=== PATIENT | female | born 1965 | race Caucasian/White ===

== ENCOUNTER 2018-03-26 23:44 | Emergency (ER) | payer OTHER ==
[2018-03-27 00:02] VITALS: BP 156/74; PULSE 65; O2SAT 94
--- NOTE | 2018-03-27 00:18 | ERPHSYRPT ---
- History of Present Illness Time Seen by Provider: 03/27/18 00:05 Source: patient Exam Limitations: no limitations Patient Subjective Stated Complaint: Pt arrives to ER with c/o scratch to varicose vein on right lower leg was sitting on couch at 2310 when she had an itch on her right lower leg that she scratched then felt something wet and was bleeding. Had applied pressure to wound and had not stopped bleeding so came into ER. Bleeding is now stopped and there is a very small scab forming around wound the size of a pen tip. Pt denies pain Triage Nursing Assessment: see above Physician History: 52-year-old white female arrives with complaint of bleeding from a varicose vein on her right leg since 23:10 this evening. According to patient she scratched it when sitting on the couch had bleeding from the area she states that she had blood squirting out of the scratch herself stated that he tried to put a dressing on it and wrap a tie tie around the area, however, the area continued to bleed. Currently the patient is not bleeding she does not appear to be in acute distress. Past medical history includes arthritis Past surgical history includes hernia repair orthopedic surgery vein stripping Method of Injury: other (scratched the area while sitting on the couch) Occurred: just prior to arrival Quality: constant Severity of Pain-Max: none Severity of Pain-Current: none Lower Extremities Pain: other: right (bleeding from small varicosity right anterior lower leg) Modifying Factors: Improves With: nothing Associated Symptoms: none Allergies/Adverse Reactions: No Known Drug Allergies Allergy (Verified 03/27/18 00:02) Home Medications: Gabapentin 300 mg PO BID 10/27/14 [History] Indomethacin 25 mg PO 03/27/18 [History] Tramadol HCl 50 mg [Ultram 50 mg] 50 mg PO 03/27/18 [History] Hx Tetanus, Diphtheria Vaccination/Date Given: Yes (UNKNOWN) Hx Influenza Vaccination/Date Given: No Hx Pneumococcal Vaccination/Date Given: No - Review of Systems Constitutional: No Fever, No Chills Eyes: No Symptoms Ears, Nose, & Throat: No Symptoms Respiratory: No Cough, No Dyspnea Cardiac: No Chest Pain, No Edema, No Syncope Abdominal/Gastrointestinal: No Abdominal Pain, No Nausea, No Vomiting, No Diarrhea Genitourinary Symptoms: No Dysuria Musculoskeletal: No Back Pain, No Neck Pain Skin: Other (bleeding from small varicosity right anterior lower leg) Neurological: No Dizziness, No Focal Weakness, No Sensory Changes Psychological: No Symptoms Endocrine: No Symptoms All Other Systems: Reviewed and Negative - Past Medical History Pertinent Past Medical History: Yes Musculoskeletal History: Arthritis - Past Surgical History Past Surgical History: Yes Gastrointestinal: Hernia Repair Musculoskeletal: Orthopedic Surgery Female Surgical History: Section Other Surgical History: SINUS SURGERY - Social History Smoking Status: Never smoker Exposure to second hand smoke: No Drug Use: none Patient Lives Alone: No - Female History Hx Now: No - Nursing Vital Signs Nursing Vital Signs: Initial Vital Signs Temperature 97.7 F 03/26/18 23:54 Pulse Rate 65 03/26/18 23:54 Respiratory Rate 20 03/26/18 23:54 Blood Pressure 156/74 03/26/18 23:54 O2 Sat by Pulse Oximetry 94 L 03/26/18 23:54 Pain Scale Pain Intensity 0 - Physical Exam General Appearance: alert Eyes, Ears, Nose, Throat Exam: moist mucous membranes Neck Exam: non-tender, supple Cardiovascular/Respiratory Exam: chest non-tender, normal breath sounds, regular rate/rhythm, no respiratory distress Gastrointestinal/Abdominal Exam: non-tender, guarding Back Exam: normal inspection, No vertebral tenderness Hips Exam: bilateral: non-tender, normal inspection, normal range of motion, no evidence of injury Legs Exam: right leg: other (Right lower leg with several small varicositis anteriorly, one of them with small punctate abrasion not bleeding at this time) , left leg: normal inspection, no evidence of injury, bilateral leg: non-tender , normal range of motion Knees Exam: bilateral knee: non-tender, normal inspection, normal range of motion, no evidence of injury Ankle Exam: bilateral ankle: non-tender, normal inspection, normal range of motion, no evidence of injury Foot Exam: bilateral foot: non-tender, normal inspection, normal range of motion , no evidence of injury Neuro/Tendon Exam: normal sensation, normal motor functions Mental Status Exam: alert, oriented x 3, cooperative Skin Exam: other ((right lower leg with small varicosity with punctate excoriation, not currently bleeding) SpO2 Interpretation: normal (94%) SpO2: 94 Oxygen Delivery: Room Air - Course Nursing assessment & vital signs reviewed: Yes Ordered Tests: Active Orders 24 hr Category Date Time Status Luke Bandage Application -[facility] STAT Care 03/27/18 00:12 Active Wound Care STAT Care 03/27/18 00:12 Active - Progress Progress: improved Progress Note: 03/27/18 00:19 This is a 52-year-old white female who arrives with complaint that she accidentally scratched varicosity on her right lower leg. This was apparently streaming blood at home. Her wrapped attired in a dressing around it apparently was bleeding in the waiting room but is no longer bleeding at this time. Will go ahead and have nurse clean the area apply a dressing and Luke wrap. Patient is to go home elevate her leg and apply cold packs to the area. - Departure Time of Disposition: 00:20 Departure Disposition: Home Clinical Impression: Bleeding from varicose vein Condition: Fair Critical Care Time: No Referrals: PAULY LEUNG [Primary Care Provider] - Additional Instructions: Return home. Elevate right leg tonight. Cold packs to area tonight. Follow-up with your family doctor or return if problems. Return for acute distress or for severe symptoms.
== END 2018-03-27 00:42 | disposition home or self-care (01) ==
LOC: ED 23:44
DX: I83.891 Varicose veins of right lower extremity with other complications (principal)
CPT/HCPCS: 99283

== ENCOUNTER 2020-01-14 06:09 | Day surgery (SDC) | payer OTHER ==
[~2020-01-14 06:09] MED LIST: CEFAZOLIN 2 GM-D5W BAG** 2 GM/50 ML ML IV SCH; Lactated Ringers 1,000 ML IV SCH
[2020-01-14 06:35] LABS: BASOPHIL % 0.6 % (0.0-0.4); Basophil (Absolute #) 0.05 (0-0.4); Eosinophil % 2.1 % (0.00-5.0); Eosinophil (Absolute #) 0.18 (0-0.5); Hematocrit 42.9 % (35-47); Hemoglobin 13.2 gm/dl (12.0-16.0); Lymphocytes % 25.9 % (24.0-44.0); Mean Cell Volume 85.8 fl (78-100); Mean Corpuscular Hemoglobin 26.4 pg (26-32); Mean Corpuscular Hgb Concent. 30.8 g/dl (32-36); Mean Platelet Volume 9.7 fl (7.5-11.0); Monocyte (Absolute #) 0.75 (0.0-1.3); Monocytes % 8.8 % (0.0-12.0); Neutrophil % 62.6 % (36.0-66.0); Platelet Count 313 K/mm3 (150-450); Red Cell Distribution Width 16.7 % (11.5-14.0); White Blood Count 8.5 K/mm3 (4.0-10.5)
[2020-01-14 06:48] LABS: ALBUMIN 4.1 g/dL (3.5-5.0); ALKALINE PHOSPHATASE 123 U/L (38-126); ANION GAP 12.3 MEQ/L (5-15); BLOOD UREA NITROGEN 12 mg/dL (7-17); CHLORIDE 105 mmol/L (98-107); Calcium 9.1 mg/dL (8.4-10.2); Carbon Dioxide 29 mmol/L (22-30); Glucose 126 mg/dL (74-106); Potassium 4.4 mmol/L (3.5-5.1); SGOT/AST 25 U/L (14-36); SGPT/ALT 26 U/L (0-35); SODIUM 141 mmol/L (137-145); Total Protein 7.5 g/dL (6.3-8.2)
[2020-01-14] MEDS ORDERED: Lactated Ringers 1,000 ML IV ONE (07:53)
[2020-01-14] MEDS ORDERED: DIPRIVAN 200 MG/20 ML IV ONE ×2 (07:53→08:10)
[2020-01-14] MEDS ORDERED: Versed 2 MG/2 ML Injection ONE (07:53)
[2020-01-14] MEDS ORDERED: Quelicin Fliptop 200 MG/10 ML ONE (07:53)
[2020-01-14] MEDS ORDERED: SUBLIMAZE 100 MCG/2 ML ONE (07:53)
[2020-01-14] MEDS ORDERED: Xylocaine-Mpf 2% 5 Ml Vial ONE (08:00)
[2020-01-14] MEDS ORDERED: KEFZOL 1 GM ONE (08:15)
[2020-01-14] MEDS ORDERED: Zofran 4 MG/2 ML VIAL ONE (08:54)
[2020-01-14] MEDS ORDERED: TORAdol 30 mg Injection ONE (09:00)
[2020-01-14 09:25] VITALS: O2SAT 96
[2020-01-14 10:07] VITALS: BP 115/65; PULSE 59
--- NOTE | 2020-01-15 07:59 | OP ---
AMENDED REPORT: SURGERY DATE/TIME: 01/14/2020 0757 PREOPERATIVE DIAGNOSES: 1) Abnormal uterine bleeding. 2) Enlarged fibroid uterus. 3) Menorrhagia. POSTOPERATIVE DIAGNOSES: 1) Abnormal uterine bleeding. 2) Enlarged fibroid uterus. 3) Menorrhagia. 4) Submucosal fibroid versus endometrial polyp. PROCEDURE: Hysteroscopy D&C with ablation with MyoSure removal of submucosal fibroid versus polyp. SURGEON: Mumtaz Mercado D.O. [employer] EXAMINER: Pr[facility] services asst. ANESTHESIA: General. ESTIMATED BLOOD LOSS: Minimal. COMPLICATIONS: None. INDICATIONS: The risks, benefits, indications and alternatives of the procedure were reviewed with the patient prior to procedure. The patient understood the risk of infection, bleeding, bowel injury, bladder injury, ureteral injury, uterine perforation, pelvic infection, thrombophilia disorder associated with this surgery. However desires to have this surgery as a possible need to alleviate her current medical condition. DESCRIPTION OF PROCEDURE AND FINDINGS: At this point the patient is taken to the operating room, given general sedation, placed in dorsal lithotomy position. Prepped and draped in the usual sterile fashion. A weighted speculum is then placed in the patient's vagina and the anterior lip of the cervix grasped with a single tooth tenaculum. Endocervical dilators are advanced to the endocervical canal as a means to dilate the cervix and the uterus is sounded to approximately 11 cm. From this point a 5 mm hysteroscope was then placed in through the endocervical canal where visualization revealed extended entrance into the endometrial cavity along what appears to be either a polypoid lesion versus submucosal fibroid which had the consistency of either extending into the anterior body of the uterus. There are no other lesions that were noted. From this point the MyoSure was then taken and attached to the hysteroscope where MyoSure was used to excise the lesion in its entirety and was done so without complication with no bleeding that was noted. After completion of the resection of the polypoid lesion versus submucosal fibroid, the hysteroscope was then removed and the curette was then placed into the fundus of the uterus where curettage was performed in all quadrants of the uterus retrieving a mild amount of tissue. From this point again hemostasis was attained and at this point the curette was removed. At this point the Novasure was then introduced into the fundal region of the uterus retracted approximately 1 cm with a length 6.5 cm and the width was 3.1 cm. The Novasure was then turned on for approximately 60 seconds of ablative time. After complete ablation the instrument was then engaged and the Novasure was removed from the uterine cavity and was done so without complication. From this point all instruments were then removed from the patient's vaginal region. The patient was then taken out of the dorsal lithotomy position, was taken out of anesthesia and was then taken to the recovery room in stable condition. All instruments and laps were accounted for x2.
== END 2020-01-14 10:26 | disposition home or self-care (01) ==
LOC: SDC 06:09
PROVIDERS: ATTEND Obstetrics & Gynecology
DX: N93.9 Abnormal uterine and vaginal bleeding, unspecified (principal); N92.0 Excessive and frequent menstruation with regular cycle; D25.9 Leiomyoma of uterus, unspecified; N84.0 Polyp of corpus uteri; I10 Essential (primary) hypertension; Z79.899 Other long term (current) drug therapy
CPT/HCPCS: 36415; 58558; 80053; 84703; 85025; 88305; 93005; J0330; J0690; J1885; J2250; J2405; J2704; J3010

== ENCOUNTER 2023-11-30 09:57 | Day surgery (SDC) | payer OTHER ==
[2023-11-30] MEDS ORDERED: Lactated Ringers 1,000 ML IV ONE (10:27)
[2023-11-30] MEDS: Lactated Ringers 1,000 ML IV SCH (10:42)
[2023-11-30] MEDS ORDERED: DIPRIVAN 200 MG/20 ML IV ONE ×2 (12:27→12:38)
[2023-11-30] MEDS ORDERED: Versed 2 MG/2 ML Injection ONE (12:28)
[2023-11-30 13:17] VITALS: RESP 18; TEMP 96.5
[2023-11-30 13:25] VITALS: BP 126/70; PULSE 74; O2SAT 98
--- NOTE | 2023-11-30 15:15 | OP ---
SURGERY DATE/TIME: 11/30/2023 1230 PREOPERATIVE DIAGNOSIS: Overdue for colorectal cancer screening. POSTOPERATIVE DIAGNOSES: 1) Polyp. 2) Diverticulosis. PROCEDURE: Colonoscopy with polypectomy. SURGEON: Tino Gates M.D. HISTORY: The patient is a 58-year-old female that presents overdue for colorectal cancer screening. No prior colonoscopy. She would like to proceed with that. FINDINGS: 1) A 2 mm rectal polyp. 2) Diverticulosis sigmoid colon. DESCRIPTION OF PROCEDURE: The patient brought to endoscopy suite, routinely positioned, prepared and time out performed. The external examination is normal. Digital rectal exam normal. Colonoscope inserted and advanced to the cecum confirmed by the appendiceal orifice and ileocecal valve. The preparation of Aronchick good preparation. Greater than six minute withdrawal time performed. There is diverticulosis in the sigmoid, descending colon. Just a small 2 mm polyp found in the rectum taken with forceps for pathology. Retroflexion normal otherwise. The scope is withdrawn. Patient tolerated the procedure well and taken to recovery in stable condition. RECOMMENDATIONS: Just a phone appointment in two to four weeks to go over the pathology results. Probably a five year repeat depending on path.
== END 2023-11-30 13:30 | disposition home or self-care (01) ==
LOC: SDC 09:57
PROVIDERS: ATTEND Surgery
DX: Z12.11 Encounter for screening for malignant neoplasm of colon (principal); R73.03 Prediabetes; K63.5 Polyp of colon; K57.30 Diverticulosis of large intestine without perforation or abscess without bleeding
CPT/HCPCS: 82947; J2250; J2704